=== PATIENT | female | born 1965 | race African-American/Black ===

== ENCOUNTER → 2023-10-28 11:59 | Outpatient (REF) | payer OTHER, SELFPAY | LOC: HWWDC 11:59 | PROVIDERS: ATTENDING PHYSICIAN Family Medicine | DX: Z12.31 Encounter for screening mammogram for malignant neoplasm of breast (principal) | CPT/HCPCS: 77063; 77067 ==

== ENCOUNTER → 2024-11-18 07:33 | Outpatient (REF) | payer OTHER, SELFPAY | LOC: HWWDC 07:33 | PROVIDERS: ATTENDING PHYSICIAN Family Medicine | DX: Z12.31 Encounter for screening mammogram for malignant neoplasm of breast (principal) | CPT/HCPCS: 77063; 77067 ==